=== PATIENT | female | born 1950 | race Caucasian/White ===

== ENCOUNTER 2018-02-25 15:36 | Inpatient (IN) ==
--- NOTE | 2018-02-25 16:00 | Emergency Department Note ---
Disposition Clinical Impression: Symptomatic bradycardia Disposition: Admitted As Inpatient Condition: Good Arrhythmia/Palpitations HPI - General Chief Complaint: ED Arrhythmia/Palpitations Stated Complaint: bradycardia Time Seen by Provider: 02/25/18 15:49 Source: patient Mode of arrival: private vehicle Limitations: no limitations Nursing Notes Reviewed: Yes Vital Signs Reviewed: Yes - History of Present Illness HPI Narrative: 67-year-old female history of hypertension, prior coronary artery bypass graft 4 years ago, baseline recent bradycardia on 25 mg metoprolol daily presents to the ER due to bradycardia. The patient reports this is been an ongoing thing and that she is following with cardiology for potential pacemaker placement. She states that this morning she woke up feeling lightheaded broke out in a sweat felt short of breath. She checked her heart rate it was 38. She states that that his lower that she usually runs. States he is usually more around 50 beats a minute. She reports that she was working today and still continued to feel lightheaded and much more short of breath even with minimal exertion which prompted her to come here. She denies any chest pain. No history of cardiovascular disease with the exception of her bypass, no history of DVT or PE. No other complaints. Onset (ago): day(s) Duration: intermittent Arrhythmia History: other (Bradycardia) Associated symptoms: Reports: shortness of breath, near-syncope, diaphoresis. Denies: syncope - Related Data Home Medications Medication Instructions Recorded Confirmed Aspirin Enteric Coated [Aspirin EC] 81 mg PO DAILY 02/25/18 02/25/18 Bupropion HCl [Wellbutrin Xl] 300 mg PO DAILY 02/25/18 02/25/18 Ezetimibe [Ezetimibe] 10 mg PO DAILY 02/25/18 02/25/18 FLUoxetine HCl [PROzac] 20 mg PO DAILY 02/25/18 02/25/18 Losartan Potassium [Cozaar] 50 mg PO DAILY 02/25/18 02/25/18 Metoprolol Succinate [Toprol Xl] 25 mg PO DAILY 02/25/18 02/25/18 Rosuvastatin Calcium [Rosuvastatin 40 mg PO HS 02/25/18 02/25/18 Calcium] Valsartan [Valsartan] 80 mg PO DAILY 02/25/18 02/25/18 amLODIPine [Norvasc] 5 mg PO DAILY 02/25/18 02/25/18 Allergies Allergy/AdvReac Type Severity Reaction Status Date / Time No Known Allergies Allergy Verified 02/25/18 16:08 All systems ED: reviewed and negative except as stated. Cardiovascular: Denies: chest pain, palpitations Respiratory: Reports: dyspnea Gastrointestinal: Denies: abdominal pain, nausea, vomiting Neurological: Reports: other (Dizziness) Past Medical History - Past Medical History Attestation: Yes The following information was validated with the patient. Source: patient Medical history: Reports: arthritis, coronary artery disease, myocardial infarction Surgical history: Reports: coronary bypass (CABG), other Psychiatric history: Reports: no psych history - Social History Smoking Status: Former smoker Alcohol use: Reports: rarely Drug use: Reports: none Physical Exam - General Limitations: no limitations General appearance: alert, in no apparent distress - Head Head exam: atraumatic, normocephalic, normal inspection - Eye Eye exam: Present: normal appearance - ENT ENT exam: normal exam - Neck Neck exam: Present: normal inspection - Chest Chest inspection: Present: normal inspection, symmetric chest wall rise - Respiratory Respiratory exam: Present: normal lung sounds bilaterally - Cardiovascular Cardiovascular exam: Present: normal rhythm, bradycardia, normal heart sounds - Abdominal Exam Abdominal exam: Present: soft, Non-Tender. Absent: tenderness, distention, rigidity - Extremities Exam Extremities exam: Present: normal inspection, full ROM - Expanded Upper Extremity Exam Shoulder exam: Present: normal inspection, full ROM Arm exam: Present: normal inspection, full ROM Elbow exam: Present: normal inspection, full ROM Forearm/Wrist exam: Present: normal inspection, full ROM Hand exam: Present: normal inspection, full ROM - Expanded Lower Extremity Exam Hip/Pelvis exam: Present: normal inspection, full ROM Upper leg exam: Present: normal inspection, full ROM Knee exam: Present: normal inspection, full ROM Lower leg exam: Present: normal inspection, full ROM Ankle exam: Present: normal inspection, full ROM Foot/toe exam: Present: normal inspection, full ROM - Neurological Exam Neurological exam: Present: alert, other (GCS 15. Nonfocal.) - Skin Skin exam: Present: warm, dry Course Course Narrative: Patient seen and examined. Vital signs reviewed. Hemodynamically stable at this point with normal mentation. Plan for EKG, chest x-ray, labs, discussed with cardiology with likely admission. - Reevaluation(s) Reevaluation #1: Discussed results of imaging labs with the patient. Agreeable with admission. - Consultations Consultation #1: I spoke with the on-call administrative support specialist Dr. Bahena. Discussed the patient's history EKG and labs. Agreeable with consultation with admission to the hospital service. Vital Signs Temperature 97.6 F 02/25/18 15:37 Pulse Rate 53 02/25/18 15:37 Respiratory Rate 18 02/25/18 15:37 Blood Pressure 162/75 02/25/18 15:37 O2 Sat by Pulse Oximetry 93 02/25/18 15:37 Temperature 98.7 F 02/25/18 18:32 Pulse Rate 51 02/25/18 18:32 Respiratory Rate 18 02/25/18 18:32 Blood Pressure 170/79 02/25/18 18:32 O2 Sat by Pulse Oximetry 98 02/25/18 20:46 Oxygen Delivery Oxygen Delivery Room Air Arrhythmia/Palpitations - MDM Narrative Medical decision making narrative: 67-year-old female with symptomatic bradycardia. Hemodynamically stable here. Cardiology consulted. Admitted to the hospital service in stable condition. - Lab Data Lab results reviewed: Yes I reviewed the patient's lab results. Result diagrams: 02/25/18 15:51 02/25/18 15:51 Lab Results 02/25/18 02/25/18 02/25/18 Range/Units 15:51 15:51 15:51 WBC 6.2 (4.3-11.1) K/mcL RBC 4.54 (3.82-4.97) M/mcL Hgb 13.2 (11.5-15.4) g/dL Hct 41.0 (35.3-44.9) % MCV 90.3 (83.0-100.0) fL MCH 29.1 (28.0-33.3) pg MCHC 32.2 (31.6-35.5) g/dL RDW 13.2 (11.5-14.5) % Plt Count 251 (140-400) K/mcL MPV 10.6 (9.4-12.4) fL Immature Gran % 0.3 (0-4) % Seg Neutrophils % 57.0 % Lymphocytes % 33.7 % Monocytes % 5.6 % Eosinophils % 2.6 % Basophils % 0.8 % Neutrophils # 3.5 (1.6-8.9) K/mcL Lymphocytes # 2.1 (0.6-4.6) K/mcL Monocytes # 0.4 (0.0-1.3) K/mcL Eosinophils # 0.2 (0.0-0.6) K/mcL Basophils # 0.1 (0.0-0.2) K/mcL PT 11.0 (9.4-12.1) Seconds INR 1.0 APTT 21.2 L (26.0-36.0) Seconds Sodium 137 (136-145) mEq/L Potassium 4.4 (3.5-5.1) mEq/L Chloride 106 (98-107) mEq/L Carbon Dioxide 26 (23-29) mEq/L BUN 20 (8-23) mg/dL Creatinine 0.90 (0.60-1.20) mg/dL Est GFR ( Amer) > 60 (> 60) Est GFR (Non-Af Amer) > 60 (> 60) BUN/Creatinine Ratio 22 (6-26) Glucose 86 (70-105) mg/dL Calculated Osmolality 286 (280-300) Calcium 11.0 H (8.6-10.3) mg/dL Magnesium 2.1 (1.6-2.6) mg/dL Troponin I < 0.03 (< 0.04) ng/mL TSH 1.917 (0.340-5.600) mcIU/mL - Radiology Data Radiology results reviewed: Yes I reviewed the patient's radiology results. Chest X-Ray 02/25/18 15:51 IMPRESSION: Mild bibasilar airspace disease, likely atelectasis. Pneumonia is not excluded. D/ / Mallory Bustillo Cha, MD / Mallory Bustillo Cha, MD Interpreting Provider: Mallory Bustillo Cha, MD - EKG Data EKG attestation: Yes I reviewed and interpreted this EKG. EKG results narrative: EKG demonstrates sinus bradycardia with a rate of 45 bpm. Normal axis. Normal intervals. Poor R wave progression. No gross ST elevations or depressions. No acute ischemic findings. S.B.A.R. - S.B.A.R. Situation: Demographics, MOA Background: Presenting Complaint, Relevant PMH, Meds, & Allergies Assessment: Vital Signs, Course and respsone to treatment, Exam Concerns, Patient/Family Expectation, Pertinant Lab Results Recommendation: Barrier(s) to disposition, Recommendation based on pending studies, treatments, or consults Mac Report Given to: Hospitalist Mac Repor Time: 17:32 Attestation Statement - Attestation Attestation: I examined this patient and my medical decision-making was reviewed with the Resident Physician. I agree with the documented findings, disposition and treatment plan as described except to the extent set forth below. Findings consistent with bradycardia. Symptoms are improving. I do suspect there is underlying medication side effects. She is on beta paulina. There is no evidence of cardiac block at this time. Proceed with admission for further management cardiac consultation for possible medication adjustment.
[2018-02-25 16:28] LABS: Basophils # 0.1 K/mcL (0.0-0.2); Basophils % 0.8 %; Eosinophils # 0.2 K/mcL (0.0-0.6); Eosinophils % 2.6 %; Hemoglobin 13.2 g/dL (11.5-15.4); Immature Granulocytes % 0.3 % (0-4); Lymphocytes # 2.1 K/mcL (0.6-4.6); Lymphocytes % 33.7 %; Mean Corpuscular HGB Conc 32.2 g/dL (31.6-35.5); Mean Corpuscular Hemoglobin 29.1 pg (28.0-33.3); Mean Corpuscular Volume 90.3 fL (83.0-100.0); Mean Platelet Volume 10.6 fL (9.4-12.4); Monocytes # 0.4 K/mcL (0.0-1.3); Monocytes % 5.6 %; Neutrophils # 3.5 K/mcL (1.6-8.9); Platelet Count 251 K/mcL (140-400); Red Blood Count 4.54 M/mcL (3.82-4.97); Red Cell Distribution Width 13.2 % (11.5-14.5)
[2018-02-25 16:32] LABS: Activated Partial Thrombo Time 21.2 Seconds (26.0-36.0)
[2018-02-25 16:45] LABS: BUN/Creatinine Ratio 22 (6-26); Blood Urea Nitrogen 20 mg/dL (8-23); Carbon Dioxide 26 mEq/L (23-29); Chloride 106 mEq/L (98-107); Glucose 86 mg/dL (70-105); Magnesium 2.1 mg/dL (1.6-2.6); Osmolality,Calculated 286 (280-300); Potassium 4.4 mEq/L (3.5-5.1); Sodium 137 mEq/L (136-145); eGFR For Non-African Americans > 60 (> 60)
[2018-02-25 16:48] LABS: Troponin I < 0.03 ng/mL (< 0.04)
[2018-02-25 17:01] LABS: Thyroid Stimulating Hormone 1.917 mcIU/mL (0.340-5.600)
[2018-02-25] MEDS ORDERED: Naloxone 0.4 MG/ML INJ IVP PRN (19:14)
--- NOTE | 2018-02-25 20:18 | Internal Med History&Physical ---
Date of Encounter: 02/25/18 Time of Encounter: 19:40 Internal Medicine - H&P: HPI Chief complaint: lightheadedness Admitted From: Home History of present illness: Ms. Manning is a 67 year old female history of hypertension and s/p CABG presented to the ER with 1 day history of lightheadedness. Did not fall nor had syncopal episodes. Associated with diaphoresis. Denies chest pain, shortness of breath, cough, sputum production, nausea/vomiting, or fever/chills. She is known to have heart rate in the 50s on bb but states that it was never low in the high 30s. Prior to presentation, she had discussion with her staffing analyst about her bradycardia but has not reached an agreement for pacemaker yet. In the ED, she was afebrile and had a heart rate of 42. BP was elevated and oxygen saturation was above 95% on room air. Initial labs showed normal CBC, BMP, and PT/INR. Calcium was mildly elevated at 11.0. Electrolytes within normal limits, troponin negative 1 and TSH was normal. EKG, which I do not have a copy to review, apparently showed sinus bradycardia with a rate of [address]-T elevations. Patient was admitted for further management. Past Med Surg Social Fam HX - Past Medical History Attestation: Yes The following information was validated with the patient. Medical history: arthritis, coronary artery disease, myocardial infarction Psychiatric history: no psych history - Past Surgical History Surgical History: coronary bypass (CABG), other Additional surgical history: RECTAL PROLAPSE SURGERY - Social History Smoking Status: Former smoker Alcohol use: rarely Drug use: none Internal Medicine - H&P: Meds Aspirin Enteric Coated [Aspirin EC] 81 mg PO DAILY 02/25/18 [History] Bupropion HCl [Wellbutrin Xl] 300 mg PO DAILY 02/25/18 [History] Ezetimibe [Ezetimibe] 10 mg PO DAILY 02/25/18 [History] FLUoxetine HCl [PROzac] 20 mg PO DAILY 02/25/18 [History] Losartan Potassium [Cozaar] 50 mg PO DAILY 02/25/18 [History] Metoprolol Succinate [Toprol Xl] 25 mg PO DAILY 02/25/18 [History] Rosuvastatin Calcium [Rosuvastatin Calcium] 40 mg PO HS 02/25/18 [History] Valsartan [Valsartan] 80 mg PO DAILY 02/25/18 [History] amLODIPine [Norvasc] 5 mg PO DAILY 02/25/18 [History] 3 Allergy/AdvReac Type Severity Reaction Status Date / Time No Known Allergies Allergy Verified 02/25/18 16:08 All Systems PM: A 10-system review of systems was performed and is negative for pertinent findings except as documented above in the HPI. - Constitutional Vitals: Temp Pulse Resp BP Pulse Ox 98.7 F 51 18 170/79 96 02/25/18 18:32 02/25/18 18:32 02/25/18 18:32 02/25/18 18:32 02/25/18 18:32 Exam: General: Alert and oriented HEENT:EOM, pupils equal, round, and reactive. Cardiovascular:Normal S1 & S2, Bradycardic Lungs:Normal breath sounds, no wheezes or crackles. Abdomen:Soft, non-tender, no rigidity. Extremities:No deformity, no edema or tenderness, no joint swelling. Neurological:Normal cognition and motor skills. Skin:Normal color, no rash, no lesions. Pulses:Carotid and radial pulses normal +2. Rest of the physical exam is non-contributory Internal Med - H&P Results - Labs CBC & Chem 7: 02/25/18 15:51 02/25/18 15:51 - Assessment and plan (1) Symptomatic bradycardia Current Visit: Yes Status: Acute Assessment and plan: Presented with lightheadedness and presyncopal episode with heart rate of 38 in the setting of concomitant bb use hold off bb Telemetry overnight Trend troponin to rule out ACS Monitor electrolytes Cardiology evaluation tomorrow for possible pacemaker insertion, will keep her NPO just in case (2) Hypertension Current Visit: Yes Status: Acute Assessment and plan: Resume home meds ?She is supposedly on both losartan and losartan at home, will hold off on one of the ARBs Qualifiers: Hypertension type: unspecified Qualified Code(s): I10 - Essential (primary ) hypertension (3) DVT prophylaxis Current Visit: Yes Status: Acute Assessment and plan: SQ heparin - Time Spent With Patient Total time spent is greater than 50% in coordination of care (as documented) at patient's floor/unit and/or counseling patient:
[2018-02-25] MEDS: *HR* Heparin 5,000 UNIT/ML VIAL SQ SCH (20:37)
[2018-02-26 04:19] LABS: Basophils % 0.8 %; Eosinophils # 0.2 K/mcL (0.0-0.6); Eosinophils % 3.6 %; Hematocrit 36.4 % (35.3-44.9); Hemoglobin 11.9 g/dL (11.5-15.4); Immature Granulocytes % 0.2 % (0-4); Lymphocytes # 2.2 K/mcL (0.6-4.6); Lymphocytes % 41.3 %; Mean Corpuscular HGB Conc 32.7 g/dL (31.6-35.5); Mean Corpuscular Hemoglobin 29.3 pg (28.0-33.3); Mean Corpuscular Volume 89.7 fL (83.0-100.0); Mean Platelet Volume 10.6 fL (9.4-12.4); Monocytes # 0.4 K/mcL (0.0-1.3); Monocytes % 7.4 %; Neutrophils # 2.5 K/mcL (1.6-8.9); Platelet Count 209 K/mcL (140-400); Red Blood Count 4.06 M/mcL (3.82-4.97); Red Cell Distribution Width 13.2 % (11.5-14.5); Segmented Neutrophils % 46.7 %
[2018-02-26 04:40] LABS: Alanine Aminotransferase 13 Units/L (7-52); Albumin 3.7 g/dL (3.5-5.7); Albumin/Globulin Ratio 1.6 (1.1-2.2); Alkaline Phosphatase 49 Units/L (34-104); Aspartate Amino Transferase 15 Units/L (13-39); BUN/Creatinine Ratio 25 (6-26); Bilirubin,Total 0.4 mg/dL (0.3-1.0); Blood Urea Nitrogen 17 mg/dL (8-23); Carbon Dioxide 24 mEq/L (23-29); Chloride 109 mEq/L (98-107); Globulin 2.3 g/dL (2.4-3.5); Glucose 95 mg/dL (70-105); Osmolality,Calculated 291 (280-300); Potassium 4.1 mEq/L (3.5-5.1); Sodium 140 mEq/L (136-145); eGFR For Non-African Americans > 60 (> 60)
[2018-02-26] MEDS: *HR* Heparin 5,000 UNIT/ML VIAL SQ SCH ×4 (05:29→23:17)
[2018-02-26] MEDS: amLODIPine 5 MG TABLET PO SCH (07:56)
[2018-02-26] MEDS: Aspirin Enteric Coated 81 MG Tablet PO SCH (07:56)
[2018-02-26] MEDS: (Ezetimibe [Ezetimibe] 10 MG) PO SCH (07:56)
[2018-02-26] MEDS: FLUoxetine 20 MG CAPSULE PO SCH (07:56)
[2018-02-26] MEDS: BuPROPion XL (24 HR) 150 MG TABLET PO SCH (07:56)
--- NOTE | 2018-02-26 09:07 | Internal Med Progress Note ---
<Jez Cordero - Last Filed: 02/26/18 15:18> Hospitalist Progress Note - Encounter Date of Encounter: 02/26/18 Time of Encounter: 08:30 - Subjective Interval History: Ms. Manning was sitting upright upon my arrival and watching TV. Upon questioning the patient is alert and oriented x 3 and does not appear to be in any acute distress. She states that she has not had anymore episodes of lightheadedness, however she also has not moved around very much since her admission. She also denies any chest pain, shortness of breath, abdominal pain, nausea or vomiting, or any limb swelling. - Exam Vitals: Temp Pulse Resp BP Pulse Ox 97.5 F L 46 15 124/76 97 02/26/18 07:08 02/26/18 07:08 02/26/18 07:08 02/26/18 07:08 02/26/18 07:08 Exam: General Appearance: Patient does not appears to be in distress Head exam: Atraumatic, normocephalic Eye exam: PERRL, conjuntiva pink, sclera anicteric Neck exam: Trachea midline Respiratory exam: No wheezing, rales, or rhonci Cardiology exam: RRR, +S1, +S2 Gastrointestinal exam: Normal bowel sounds, soft, no tenderness Extremities exam: warm without tenderness, no peripheral edema Neurological exam: CN II-XII intact, patient is alert and oriented x 3 Skin exam: Dry and intact - Assessment and Plan (1) Symptomatic bradycardia Current Visit: Yes Status: Acute Assessment and Plan: -Ms. Manning states that she has a history of bradycardia and that her heart rate usually runs in the 50's -Is seen regularly by a treasurer but has been agreeable for pacemaker placement in the past -Admitted yesterday because she was feeling lightheaded, checked her BP at home and her heart rate was running in the 30-40's -Upon admission in the ED her heart rate was 42 -Patient states that she has not had further episodes of lightheadedness since admission -Electrolytes are all within normal limits -Cardiology evaluated the patient with plans monitor telemetry, have the patient ambulate, check orthostatics, and perform an Echo -At this time Cardiology determines the patient to be clinically stable with no indication for pacer at this time. (2) Hypertension Current Visit: Yes Status: Acute Assessment and Plan: -Patient has a previous history of hypertension -Beta paulina is currently on hold -Currently receiving treatment with Amlodipine and Losartan -Latest blood pressure was 124/76 -Continue to monitor blood pressure Q4 hours (3) DVT prophylaxis Current Visit: Yes Status: Acute Assessment and Plan: -Currently receiving DVT prophylaxis with Heparin 5,000 units SQ -Not currently complaining of calf/leg pain -On physical examination not unilateral leg swelling - Time Spent with Patient Total time spent is greater than 50% in coordination of care (as documented) at patient's floor/unit and/or counseling patient: Internal Medicine: Result - Labs CBC & Chem 7: 02/26/18 03:31 02/26/18 03:31 Labs: Short CBC 02/26/18 Range/Units 03:31 WBC 5.3 (4.3-11.1) K/mcL Hgb 11.9 (11.5-15.4) g/dL Hct 36.4 (35.3-44.9) % Plt Count 209 (140-400) K/mcL Neutrophils # 2.5 (1.6-8.9) K/mcL BMP 02/26/18 03:31 Sodium 140 Potassium 4.1 Chloride 109 H Carbon Dioxide 24 BUN 17 Creatinine 0.69 Glucose 95 Calcium 10.0 Cardiac Enzymes 02/25/18 Range/Units 21:30 Troponin I < 0.03 (< 0.04) ng/mL Liver Function 02/26/18 Range/Units 03:31 Total Bilirubin 0.4 (0.3-1.0) mg/dL AST 15 (13-39) Units/L ALT 13 (7-52) Units/L Alkaline Phosphatase 49 (34-104) Units/L Albumin 3.7 (3.5-5.7) g/dL - ABG Interpretation ABG results: PT/INR, D-dimer PT 11.0 Seconds (9.4-12.1) 02/25/18 15:51 Consult Discharge Plan - Plan Instructions: Chronic Hypertension (DC), Bradycardia (DC), Bradycardia (GEN) Referrals: Joel Avila MD [Primary Care Provider] - 03/06/18 1:30 pm <Sachin Ruelas - Last Filed: 02/26/18 19:06> Hospitalist Progress Note - Encounter Date of Encounter: 02/26/18 - Exam Vitals: Temp Pulse Resp BP Pulse Ox 97.5 F L 51 15 149/68 96 02/26/18 16:00 02/26/18 16:00 02/26/18 16:00 02/26/18 16:00 02/26/18 16:00 - Assessment and Plan (1) Drug-induced bradycardia Current Visit: Yes Status: Acute (2) Symptomatic bradycardia Current Visit: Yes Status: Acute (3) Hypertension Current Visit: Yes Status: Acute (4) DVT prophylaxis Current Visit: Yes Status: Acute (5) CAD (coronary artery disease) Current Visit: Yes Status: Chronic - Time Spent with Patient Total time spent is greater than 50% in coordination of care (as documented) at patient's floor/unit and/or counseling patient: Internal Medicine: Result - Labs CBC & Chem 7: 02/26/18 03:31 02/26/18 03:31 - ABG Interpretation ABG results: PT/INR, D-dimer PT 11.0 Seconds (9.4-12.1) 02/25/18 15:51 - Attending Attestation The history, physical exam, and medical decision making was performed by the medical student either while I was physically present and actively involved or I personally re-performed the exam and medical decision making. I have verified the accuracy of the medical student's documentation with regards to the history, physical exam findings, and medical decision making on 02/26/18. Ms Manning is currently admitted for bradycardia. She remains moderate to high risk due to potential for worsening clinical status. Ms Manning is still feeling tired. No fever or chills. No cough. No CP. No GI issues. Metoprolol on hold. Exam alert Comfortable Mucus membranes dry Heart javon but regular Lungs diminished Abd soft No edema I/P 1. Bradycardia most likely related to beta paulina 2. Fatigue Further diagnoses and plan as above. <ConsueloOglalo A - Last Filed: 02/26/18 15:18> (2) Hypertension Qualifiers: Hypertension type: unspecified Qualified Code(s): I10 - Essential (primary) hypertension <Sachin Ruelas A - Last Filed: 02/26/18 19:06> (3) Hypertension Qualifiers: Hypertension type: essential hypertension Qualified Code(s): I10 - Essential (primary) hypertension (5) CAD (coronary artery disease) Qualifiers: Coronary Disease-Associated Artery/Lesion type: [place] artery [place] vs. transplanted heart: [place] heart Associated angina: without angina Qualified Code(s): I25.10 - Atherosclerotic heart disease of [place] coronary artery without angina pectoris
--- NOTE | 2018-02-26 10:28 | Cardiology Consult Note ---
Date of Encounter: 02/26/18 Time of Encounter: 10:25 Assessment and Plan (1) Symptomatic bradycardia Current Visit: Yes Status: Acute Per Cardiology: Recent Holter January 2018 showed average heart rate 53 with rare PVCs 0.7 per hour and frequent PACs 157 per hour with no arrhythmias. Telemetry review with average heart rate the past 24 hours 49 with no significant events. ECG shows sinus bradycardia at 44 with PAC. Takes Toprol-XL 25 mg by mouth daily at home for known CAD. Last dose yesterday morning. Currently on hold. We will monitor telemetry and have ambulate. Will check orthostatics. We will check echo. Last echo August 2014 with EF 55%, mild diastolic dysfunction, no significant valvular disease. Clinically stable with no indication for pacer at this time. TSH stable. Discussed and reviewed with Dr. Hernandez. (2) CAD (coronary artery disease) Current Visit: Yes Status: Chronic Per Cardiology: History of CABG by Dr. Larkin June 2014. Troponins negative 2. Chest pain free. Negative nuclear stress test September 2017. On aspirin, statin, ARB. BB currently on hold. Qualifiers: Coronary Disease-Associated Artery/Lesion type: [place] artery [place] vs. transplanted heart: [place] heart Associated angina: without angina Qualified Code(s): I25.10 - Atherosclerotic heart disease of [place] coronary artery without angina pectoris Discussion w patient/family: The assessment and plan as outlined above was discussed with the patient and/or family members who expressed understanding and agreement. All questions were answered. Thank you for involving us in the care of your patient. Please call with any questions. History of Present Illness Consult date: 02/26/18 Requesting physician: Eric Hobson Consult reason: Bradycardia Chief complaint: Dizziness History of present illness: Ms. Manning is a 67 year old female with relevant past medical history of CAD with CABG [address] Larikn, HTN, and history of nicotine abuse. Last seen by Dr. Katlyn Nguyen December 2017. Cardiology consult for bradycardia. Patient reports yesterday and his heart rate around 38 with some mild dizziness. She denies any syncope or falls. Reports later that day heart rate in the 40s with some mild dizziness as well. She does report intermittent dizziness daily with position changes. Again denies any recent syncopal events or falls. Reports very rare palpitations, occurs for a few seconds about once per week. She denies any active bleeding or blood loss. Denies any chest pain. Denies any dyspnea on exertion or shortness of breath. Reports overall baseline fatigue unchanged. She reports taking Toprol-XL 25 mg by mouth daily with last dose yesterday morning. Past Med Surg Social Fam HX - Past Medical History Attestation: Yes The following information was validated with the patient. Source: patient, old records reviewed, obtained from family Medical history: arthritis, coronary artery disease, myocardial infarction Psychiatric history: no psych history - Past Surgical History Surgical History: coronary bypass (CABG), other Additional surgical history: RECTAL PROLAPSE SURGERY - Social History Smoking Status: Former smoker Alcohol use: rarely Drug use: none Medications and Allergies Aspirin Enteric Coated [Aspirin EC] 81 mg PO DAILY 02/25/18 [History] Bupropion HCl [Wellbutrin Xl] 300 mg PO DAILY 02/25/18 [History] Ezetimibe [Ezetimibe] 10 mg PO DAILY 02/25/18 [History] FLUoxetine HCl [PROzac] 20 mg PO DAILY 02/25/18 [History] Losartan Potassium [Cozaar] 50 mg PO DAILY 02/25/18 [History] Metoprolol Succinate [Toprol Xl] 25 mg PO DAILY 02/25/18 [History] Rosuvastatin Calcium [Rosuvastatin Calcium] 40 mg PO HS 02/25/18 [History] Valsartan [Valsartan] 80 mg PO DAILY 02/25/18 [History] amLODIPine [Norvasc] 5 mg PO DAILY 02/25/18 [History] 3 Allergy/AdvReac Type Severity Reaction Status Date / Time No Known Allergies Allergy Verified 02/25/18 16:08 All Systems Review: The remainder of the systems were reviewed and are negative - Constitutional Constitutional: fatigue - Cardiovascular Cardiovascular: as per HPI, lightheadedness, palpitations Physical Examination Vital Signs, Last 4 Hours Temp Pulse Resp BP Pulse Ox 02/26/18 07:08 97.5 F L 46 15 124/76 97 General: Conversant, No Apparent Distress HEENT: Atraumatic, Normocephaly, Mucus Membranes Moist Neck: No JVD, Normal carotid pulses Cardiac: Reg Rate and Rhythm, Normal S1 and S2, No Murmur Lungs: Normal Breath Sounds, No Wheeze, Rales, Rhonchi Neuro: Alert and responsive, No focal deficits noted Abdomen: Soft, Non-Tender Skin: No rashes noted on visualized skin Musculoskeletal: No Chest Wall Tenderness Extremities: No Clubbing, No Cyanosis, No Edema, Normal Pulses Results 02/26/18 03:31 02/26/18 03:31 Lab Results Laboratory Tests 02/25/18 02/25/18 02/25/18 15:51 15:51 21:30 INR 1.0 Creatinine Est GFR (Non-Af Amer) Magnesium AST ALT Troponin I < 0.03 < 0.03 TSH 1.917 02/26/18 03:31 INR Creatinine 0.69 Est GFR (Non-Af Amer) > 60 Magnesium 2.0 AST 15 ALT 13 Troponin I TSH ITS Impressions Chest X-Ray 02/25/18 15:51 IMPRESSION: Mild bibasilar airspace disease, likely atelectasis. Pneumonia is not excluded. D/ / Mallory Bustillo Cha, MD / Mallory Bustillo Cha, MD Interpreting Provider: Mallory Bustillo Cha, MD Active Medications Amlodipine Besylate (Norvasc) 5 mg PO DAILY [facility] PRN Reason: Protocol Stop: 08/28/18 09:01 Last Admin: 02/26/18 07:56 Dose: 5 mg Aspirin (Aspirin Ec) 81 mg PO DAILY [facility] Stop: 08/28/18 09:01 Last Admin: 02/26/18 07:56 Dose: 81 mg Bupropion HCl (Wellbutrin Xl) 300 mg PO DAILY [facility] Stop: 08/28/18 09:01 Last Admin: 02/26/18 07:56 Dose: 300 mg Fluoxetine HCl (Prozac) 20 mg PO DAILY [facility] PRN Reason: Protocol Stop: 08/28/18 09:01 Last Admin: 02/26/18 07:56 Dose: 20 mg Heparin Sodium (Porcine) (Heparin) 5,000 unit SQ Q8HCO [facility] Stop: 08/27/18 22:01 Last Admin: 02/26/18 05:29 Dose: 5,000 unit Losartan Potassium (Cozaar) 50 mg PO DAILY [facility] Stop: 08/28/18 09:01 Last Admin: 02/26/18 07:56 Dose: 50 mg Naloxone HCl (Narcan) 0.4 mg IVP Q2MIN PRN PRN Reason: SEE COMMENTS Stop: 08/27/18 19:15 Pharmacy Profile Note (Patient Taking Own Medication) 0 each PO DAILY [facility] Stop: 08/28/18 09:01 Last Admin: 02/26/18 07:56 Dose: Not Given Rosuvastatin Calcium (Crestor) 40 mg PO HS [facility] Stop: 08/27/18 21:01 Last Admin: 02/25/18 20:37 Dose: 40 mg - Imaging and Cardiology Stress Test: report reviewed (Nuclear stress test September 2017 negative for ischemia or infarct) - EKG Interpretation EKG results cardiology: personally reviewed (SB 44, PAC), normal ECG, sinus rhythm, other (Telemetry reviewed with average heart rate as 24 hours 49) Consult Discharge Plan - Plan Instructions: Chronic Hypertension (DC), Bradycardia (DC), Bradycardia (GEN) Referrals: Joel Avila MD [Primary Care Provider] - 03/06/18 1:30 pm
--- NOTE | 2018-02-26 12:56 | Event Note ---
Date of Encounter: 02/26/18 Time of Encounter: 13:00 - Cardiology Event Note Orthos: Selected Entries 02/26/18 11:59 Pulse Rate [Orthostatic Lying Right Arm] 51 Pulse Rate [Orthostatic Sitting Right Arm] 53 Pulse Rate [Orthostatic Standing Right Arm] 52 Blood Pressure [Orthostatic Lying Right Arm] 136/74 Blood Pressure [Orthostatic Sitting Right Arm] 143/93 Blood Pressure [Orthostatic Standing Right Arm] 136/73
--- NOTE | 2018-02-26 16:27 | Electrocardiograph Report ---
[address] [place], [place] [address] Test Date: 2018-02-25 Pat Name: Kristel Manning Department: 104 Room: 2NE17 Gender: F Nip Wrapper: : 1950 Requested By: Enrrique Valero Order Number: [id number] Reading MD: Aissatou Bahena Measurements Intervals [place] Rate: 45 P: 44 CA: 171 QRS: -1 QRSD: 98 T: 41 QT: 453 QTc: 410 Interpretive Statements SINUS BRADYCARDIA Electronically Signed On 02-26-2018 16:26:22 EDT by Aissatou Bahena
--- NOTE | 2018-02-26 16:31 | Electrocardiograph Report ---
[address] [place] [address] Test Date: 2018-02-25 Pat Name: Kristel Manning Department: 111 Room: 2NE17 Gender: F Rn Medical Inpatient Services: : 1950 Requested By: Marilin Saucedo Order Number: [id number] Reading MD: Aissatou Bahena Measurements Intervals [place] Rate: 44 P: 30 NM: 181 QRS: 3 QRSD: 110 T: 21 QT: 474 QTc: 423 Interpretive Statements SINUS BRADYCARDIA WITH OCCASIONAL SUPRAVENTRICULAR PREMATURE COMPLEXES MINIMAL ST DEPRESSION Electronically Signed On 02-26-2018 16:29:42 EDT by Aissatou Bahena
[2018-02-26] MEDS ORDERED: Ibuprofen 600 MG TABLET PO PRN (21:52)
[2018-02-27] MEDS: BuPROPion XL (24 HR) 150 MG TABLET PO SCH (08:44)
[2018-02-27] MEDS: *HR* Heparin 5,000 UNIT/ML VIAL SQ SCH ×2 (08:44→14:45)
[2018-02-27] MEDS: amLODIPine 5 MG TABLET PO SCH (08:44)
[2018-02-27] MEDS: FLUoxetine 20 MG CAPSULE PO SCH (08:44)
[2018-02-27] MEDS: (Ezetimibe [Ezetimibe] 10 MG) PO SCH (08:45)
[2018-02-27] MEDS: Aspirin Enteric Coated 81 MG Tablet PO SCH (08:45)
[2018-02-27] MEDS ORDERED: amLODIPine 5 MG TABLET PO ONE (09:45)
--- NOTE | 2018-02-27 09:46 | Cardiology Progress Note ---
Date of Encounter: 02/27/18 Time of Encounter: 09:40 Assessment and Plan (1) Symptomatic bradycardia Current Visit: Yes Status: Acute Per Cardiology: Recent Holter January 2018 showed average heart rate 53 with rare PVCs 0.7 per hour and frequent PACs 157 per hour with no arrhythmias. Telemetry showed average heart rate the past 12 hours 51 with no significant events. Current heart rate stable in the 50s and patient clinically improved. Echo pending. Per discussion Dr. Hernandez, we will proceed with modified standard stress test to assess for chronotropic response. Suspect possible discharge later today off beta paulina. TSH stable. Discussed reviewed with primary service. (2) CAD (coronary artery disease) Current Visit: Yes Status: Chronic Per Cardiology: History of CABG by Dr. Larkin June 2014. Troponins negative 2. Chest pain free. Negative nuclear stress test September 2017. On aspirin, statin, ARB. BB currently on hold. Qualifiers: Coronary Disease-Associated Artery/Lesion type: [place] artery [place] vs. transplanted heart: [place] heart Associated angina: without angina Qualified Code(s): I25.10 - Atherosclerotic heart disease of [place] coronary artery without angina pectoris (3) Hypertension Current Visit: Yes Status: Chronic Per Cardiology: Now off beta paulina. Systolic blood pressures elevated. We will increase Norvasc to 10 mg by mouth daily and monitor. Qualifiers: Hypertension type: essential hypertension Qualified Code(s): I10 - Essential (primary) hypertension Discussion w patient/family: The assessment and plan as outlined above was discussed with the patient and/or family members who expressed understanding and agreement. All questions were answered. Thank you for involving us in the care of your patient. Please call with any questions. Subjective Principal diagnosis: Bradycardia, Fatigue Interval history: Patient reports improvement in overall symptoms. She reports "I feel much better ". An building hallway with no difficulty. Denies fatigue. Denies any dizziness or syncopal events. Anxious to go home. Objective Vital Signs, Last 4 Hours Temp Pulse Resp BP Pulse Ox 02/27/18 07:07 97.8 F 47 14 154/67 98 General: Conversant, No Apparent Distress HEENT: Atraumatic, Normocephaly, Mucus Membranes Moist Neck: No JVD, Normal carotid pulses Cardiac: Reg Rate and Rhythm, Normal S1 and S2, No Murmur Lungs: Normal Breath Sounds, No Wheeze, Rales, Rhonchi Neuro: Alert and responsive, No focal deficits noted Abdomen: Soft, Non-Tender Skin: No rashes noted on visualized skin Musculoskeletal: No Chest Wall Tenderness Extremities: No Clubbing, No Cyanosis, No Edema, Normal Pulses Results 02/26/18 03:31 02/26/18 03:31 - Imaging and Cardiology Stress Test: pending Echo: pending - EKG Interpretation EKG results cardiology: other (Telemetry reviewed past 12 hours average heart rate 51, slowest 39 during nocturnal hours, no significant events noted, currently sinus pericardia in the upper 50s on telemetry) Consult Discharge Plan - Plan Instructions: Chronic Hypertension (DC), Bradycardia (DC), Bradycardia (GEN) Referrals: Joel Avila MD [Primary Care Provider] - 03/06/18 1:30 pm
--- NOTE | 2018-02-27 09:55 | Internal Med Progress Note ---
Hospitalist Progress Note - Encounter Date of Encounter: 02/27/18 Time of Encounter: 09:30 - Subjective Interval History: Ms. Manning was sitting upright upon my arrival and watching TV. Upon questioning the patient is alert and oriented x 3, pleasant, and does not appear to be in any acute distress. She states that she has not had anymore episodes of lightheadedness, and that she feels good and has been moving around her room without any episodes. She also denies any chest pain, shortness of breath, abdominal pain, nausea or vomiting, or any limb swelling. She has also been urinating okay and had a bowel movement yesterday. - Exam Vitals: Temp Pulse Resp BP Pulse Ox 97.8 F 47 14 154/67 98 02/27/18 07:07 02/27/18 07:07 02/27/18 07:07 02/27/18 07:07 02/27/18 07:07 Exam: General Appearance: Patient does not appears to be in distress Head exam: Atraumatic, normocephalic Eye exam: PERRL, conjuntiva pink, sclera anicteric Neck exam: Trachea midline Respiratory exam: No wheezing, rales, or rhonci Cardiology exam: RRR, +S1, +S2 Gastrointestinal exam: Normal bowel sounds, soft, no tenderness Extremities exam: warm without tenderness, no peripheral edema Neurological exam: CN II-XII intact, patient is alert and oriented x 3 Skin exam: Dry and intact - Assessment and Plan (1) Symptomatic bradycardia Current Visit: Yes Status: Acute Assessment and Plan: -Ms. Manning states that she has a history of bradycardia and that her heart rate usually runs in the 50's -Is seen regularly by a perishable fruit inspector but has been agreeable for pacemaker placement in the past -Admitted yesterday because she was feeling lightheaded, checked her BP at home and her heart rate was running in the 30-40's -Upon admission in the ED her heart rate was 42 -Patient states that she has not had further episodes of lightheadedness since admission -Electrolytes are all within normal limits -Cardiology evaluated the patient and Telemetry showed an average heart rate of 51 with no significant events for the last 12 hours -Echo is pending with plans to proceed with a modified standard stress test to assess chronotropic response -At this time Cardiology determines the patient to be clinically stable with no indication for pacer at this time. (2) Hypertension Current Visit: Yes Status: Chronic Assessment and Plan: -Patient has a previous history of hypertension -Beta paulina is currently on hold -Currently receiving treatment with Amlodipine and Losartan -Latest blood pressure was 154/67 -Continue to monitor blood pressure Q4 hours (3) DVT prophylaxis Current Visit: Yes Status: Acute Assessment and Plan: -Currently receiving DVT prophylaxis with Heparin 5,000 units SQ -Not currently complaining of calf/leg pain -On physical examination not unilateral leg swelling - Time Spent with Patient Total time spent is greater than 50% in coordination of care (as documented) at patient's floor/unit and/or counseling patient: Internal Medicine: Result - Labs CBC & Chem 7: 02/26/18 03:31 02/26/18 03:31 - ABG Interpretation ABG results: PT/INR, D-dimer PT 11.0 Seconds (9.4-12.1) 02/25/18 15:51 Consult Discharge Plan - Plan Instructions: Chronic Hypertension (DC), Bradycardia (DC), Bradycardia (GEN) Referrals: Joel Avila MD [Primary Care Provider] - 03/06/18 1:30 pm (2) Hypertension Qualifiers: Hypertension type: essential hypertension Qualified Code(s): I10 - Essential (primary) hypertension
--- NOTE | 2018-02-27 13:02 | Event Note ---
Date of Encounter: 02/27/18 Time of Encounter: 13:00 - Cardiology Event Note Stress test results reviewed with Dr. Hernandez, cardiology will sign off, will plan Holter discharge and outpatient follow-up for evaluation for possible pacer insertion. Please keep patient off beta paulina.
--- NOTE | 2018-02-27 14:35 | Discharge Summary ---
<Jez Cordero Jem - Last Filed: 02/27/18 15:03> - NOTES TO OUTPATIENT PROVIDER Notes to Outpatient Provider: Presented to [facility] after feeling lightheaded, checked HR at home, was in 30-40s. Hx CAD, CABG 2013, HTN and bradycardia. Patient clinically improved without further episodes of lightheadedness or dizziness. Echo showed a LVED of 55%, indeterminate diastolic function, mild pulmonary hypertension, and mild mitral/tricuspid regurgitation. Received a stress test, but was indeterminate due to failure to achieve target heart rate, patient did not complain of chest pain during test and blood pressure was within normal limits. Cardiology has signed off on the patient with plans for a follow up as outpatient for possible pacer placement. Metoprolol on hold. Orders not resulted at time of discharge: Pending orders 02/27/18 13:02 ECG 48 holter monitor setup [ECG] Routine Date of Encounter: 02/27/18 Time of Encounter: 09:45 - Discharge Diagnosis (1) Symptomatic bradycardia Status: Acute Assessment and Plan: -Ms. Manning states that she has a history of bradycardia and that her heart rate usually runs in the 50's -Is seen regularly by a social insurance administrator but has been agreeable for pacemaker placement in the past -Admitted yesterday because she was feeling lightheaded, checked her BP at home and her heart rate was running in the 30-40's -Upon admission in the ED her heart rate was 42 -Patient states that she has not had further episodes of lightheadedness since admission -Electrolytes are all within normal limits -Cardiology evaluated the patient and Telemetry showed an average heart rate of 51 with no significant events for the last 12 hours -Echo showed a LVED of 55%, indeterminate diastolic function, mild pulmonary hypertension, and mild mitral/tricuspid regurgitation. -Received a stress test, but was indeterminate due to failure to achieve target heart rate, patient did not complain of chest pain during test and blood pressure was within normal limits -Cardiology has signed off on the patient with plans for a follow up as outpatient for possible pacer placement (2) Hypertension Status: Chronic Assessment and Plan: -Patient has a previous history of hypertension -Beta arias is currently on hold -Currently receiving treatment with Amlodipine and Losartan -Latest blood pressure was 140/67 Qualifiers: Hypertension type: essential hypertension Qualified Code(s): I10 - Essential (primary) hypertension Hospital course: Ms. Manning is a 67 year old female Ms. Manning is a 67 year old female with a past medical of hypertension and CABG , who presented to the ED with a 1 day history of lightheadedness. Patient denies falling or losing consciousness, but had been having diaphoresis. Regularly sees a Slp Teacher and has a known history bradycardia in the 50's on a Beta Arias. Prior to presentation the patient had a discussion with her Slp Teacher about possible pacemaker placement, however the patient was not agreeable at that time. Upon admission to the ED the patient was afebrile with a heart rate of 42. EKG showed sinus bradycardia, but without ischemic changes and Troponin levels were negative. Chest x-ray showed mild bibasilar airspace disease, likely atelectasis, however pneumonia could not be excluded. Cardiology evaluated the patient and Telemetry showed an average heart rate of 51 with no significant events for the last 12 hours. Echo showed a LVED of 55%, indeterminate diastolic function, mild pulmonary hypertension, and mild mitral/ tricuspid regurgitation. Also received a stress test, but was indeterminate due to failure to achieve target heart rate, patient did not complain of chest pain during test and blood pressure was within normal limits. Cardiology has signed off on the patient with recommendations to hold the Beta Arias, and plans for a follow up as outpatient for possible pacer placement. At the time of discharge the patient states that she has not had anymore episodes of lightheadedness, and that she feels good and has been moving around her room without any episodes. She also denies any chest pain, shortness of breath, abdominal pain, nausea or vomiting, or any limb swelling. For more information see Assessment/Plan - Time Spent with Patient Total time spent providing and/or coordinating discharge services: - Discharge Medications Prescriptions: amLODIPine [Norvasc] 10 mg PO DAILY #30 tablet Home Medications: Aspirin Enteric Coated [Aspirin EC] 81 mg PO DAILY 02/25/18 [History] Bupropion HCl [Wellbutrin Xl] 300 mg PO DAILY 02/25/18 [History] Ezetimibe 10 mg PO DAILY 02/25/18 [History] FLUoxetine HCl [Prozac] 20 mg PO DAILY 02/25/18 [History] Losartan Potassium [Cozaar] 50 mg PO DAILY 02/25/18 [History] Rosuvastatin Calcium 40 mg PO HS 02/25/18 [History] amLODIPine [Norvasc] 10 mg PO DAILY #30 tablet 02/27/18 [Rx] Allergies/Adverse Reactions: 3 Allergy/AdvReac Type Severity Reaction Status Date / Time No Known Allergies Allergy Verified 02/25/18 16:08 Date of admission: 02/26/18 15:44 Primary care physician: Joel Avila MD Anticipated date of discharge: 02/27/18 - Constitutional Vitals: Temp Pulse Resp BP Pulse Ox 97.8 F 53 15 140/67 95 02/27/18 10:44 02/27/18 10:44 02/27/18 10:44 02/27/18 10:44 02/27/18 10:44 - Head Head exam: Present: atraumatic, normocephalic - Eye Eye exam: Present: PERRL Pupils: Present: PERRL - Neck Neck exam general surgery: Present: trachea midline - Respiratory Respiratory exam: Present: CTAB. Absent: rales, rhonchi, wheezes - Cardiovascular Cardiovascular exam: Present: RRR, +S1, +S2. Absent: rubs - GI/Abdominal GI/Abdominal exam: Present: normal bowel sounds, soft, no peritoneal signs. Absent: distended, tenderness - Extremities Exam Extremities exam: Present: warm. Absent: calf tenderness, cyanotic, pedal edema - Neurological Exam Neurological exam: Present: CN II-XII intact, oriented X3, no focal deficits. Absent: pronater drift, facial droop, speech deficit - Skin Skin exam: Present: dry, intact - Patient Status Disposition: Home, Self-Care Condition: Good - Discharge Instructions Instructions: Chronic Hypertension (DC), Bradycardia (DC), Bradycardia (GEN) Follow Up With: Joel Avila MD [Primary Care Provider] - 03/06/18 1:30 pm - Diet and Activity Activity: resume usual activities as tolerated Diet: advance to your usual diet <Sachin Ruelas - Last Filed: 02/27/18 20:42> Orders not resulted at time of discharge: Pending orders 02/27/18 13:02 ECG 48 holter monitor setup [ECG] Routine Date of Encounter: 02/27/18 - Discharge Diagnosis (1) Drug-induced bradycardia Priority: Primary Status: Acute (2) Symptomatic bradycardia Priority: Primary Status: Acute (3) Hypertension Priority: Secondary Status: Chronic Qualifiers: Hypertension type: essential hypertension Qualified Code(s): I10 - Essential (primary) hypertension (4) CAD (coronary artery disease) Priority: Secondary Status: Chronic Qualifiers: Coronary Disease-Associated Artery/Lesion type: [place] artery [place] vs. transplanted heart: [place] heart Associated angina: without angina Qualified Code(s): I25.10 - Atherosclerotic heart disease of [place] coronary artery without angina pectoris Hospital course: Ms. Manning is a 67 year old female - Time Spent with Patient Total time spent providing and/or coordinating discharge services: 38min Date of admission: 02/26/18 15:44 Primary care physician: Joel Avila MD Discharging clinician: Sachin Ruelas - Constitutional Vitals: Temp Pulse Resp BP Pulse Ox 97.8 F 53 15 140/67 95 02/27/18 10:44 02/27/18 10:44 02/27/18 10:44 02/27/18 10:44 02/27/18 10:44 - Patient Status Overall status at discharge: patient is progressing back to baseline - Attending Attestation The history, physical exam, and medical decision making was performed by the medical student either while I was physically present and actively involved or I personally re-performed the exam and medical decision making. I have verified the accuracy of the medical student's documentation with regards to the history, physical exam findings, and medical decision making on 02/27/18. Ms Manning has been admitted for bradycardia presumed due to beta arias. Her heart rate has improved off med. She has no symptoms now and is ready for discharge home. Exam alert comfortable Mucus membranes dry Heart reg No wheeze abd soft No edema No rash No neuro finding. Plan D/C home today.
[2018-02-27 15:09] VITALS: BP 139/66
[2018-02-28] MEDS ORDERED: amLODIPine 5 MG TABLET PO SCH (09:00)
== END 2018-02-27 15:52 | disposition home or self-care (01) | DRG 310 ==
LOC: EMEROO 15:36 → 2NENU 15:36 → SUATTDRO 17:39 → 2NENU 18:15
PROVIDERS: ADMIT Internal Medicine; ATTEND Internal Medicine

== ENCOUNTER 2021-03-04 12:11 | Observation (INO) ==
[2021-03-04] MEDS ORDERED: Aspirin 81 MG TAB.CHEW PO ONE (12:25)
[2021-03-04 12:46] LABS: Hemoglobin 14.3 g/dL (11.5-15.4)
[2021-03-04 12:50] LABS: Basophils % 0.6 %; Eosinophils # 0.1 K/mcL (0.0-0.6); Eosinophils % 2.4 %; Hematocrit 43.9 % (35.3-44.9); Immature Granulocytes % 0.6 % (0-4); Immature Platelets 3.5 % (1.1-6.1); Lymphocytes # 1.7 K/mcL (0.6-4.6); Lymphocytes % 34.1 %; Mean Corpuscular HGB Conc 32.6 g/dL (31.6-35.5); Mean Corpuscular Hemoglobin 29.2 pg (28.0-33.3); Mean Corpuscular Volume 89.6 fL (83.0-100.0); Mean Platelet Volume 10.3 fL (9.4-12.4); Monocytes # 0.4 K/mcL (0.0-1.3); Monocytes % 7.3 %; Neutrophils # 2.8 K/mcL (1.6-8.9); Platelet Count 227 K/mcL (140-400); Red Cell Distribution Width 12.7 % (11.5-14.5)
[2021-03-04 13:09] LABS: BUN/Creatinine Ratio 18 (6-26); Blood Urea Nitrogen 16 mg/dL (8-23); Calcium 10.8 mg/dL (8.6-10.3); Carbon Dioxide 26 mEq/L (23-29); Chloride 107 mEq/L (98-107); Glucose 82 mg/dL (70-105); Osmolality,Calculated 286 (280-300); Potassium 4.1 mEq/L (3.5-5.1); Sodium 138 mEq/L (136-145); eGFR For African Americans > 60 (> 60); eGFR For Non-African Americans > 60 (> 60)
[2021-03-04 13:10] LABS: Troponin I < 0.03 ng/mL (< 0.04)
[2021-03-04] MEDS ORDERED: Ondansetron 4 MG/2 ML VIAL IVP PRN (13:59)
[2021-03-04] MEDS ORDERED: Naloxone 0.4 MG/ML INJ IVP PRN (13:59)
[2021-03-04] MEDS ORDERED: Nitroglycerin 0.4 MG TAB.SUBL SL PRN (14:01)
[2021-03-04] MEDS ORDERED: Perflutren Lipid Microsphere 1.3 ML in 0.9 % Sodium Chloride 8.7 ML IVP PRN (14:38)
[2021-03-04] MEDS: *HR* Heparin 5,000 UNIT/ML VIAL SQ SCH (18:08)
[2021-03-05 03:45] LABS: Basophils % 0.7 %; Eosinophils # 0.1 K/mcL (0.0-0.6); Eosinophils % 2.4 %; Hematocrit 40.4 % (35.3-44.9); Hemoglobin 12.8 g/dL (11.5-15.4); Lymphocytes % 34.7 %; Mean Corpuscular HGB Conc 31.7 g/dL (31.6-35.5); Mean Corpuscular Hemoglobin 28.9 pg (28.0-33.3); Mean Corpuscular Volume 91.2 fL (83.0-100.0); Mean Platelet Volume 10.5 fL (9.4-12.4); Monocytes # 0.4 K/mcL (0.0-1.3); Monocytes % 6.6 %; Neutrophils # 3.2 K/mcL (1.6-8.9); Platelet Count 232 K/mcL (140-400); Red Blood Count 4.43 M/mcL (3.82-4.97); Red Cell Distribution Width 12.8 % (11.5-14.5); Segmented Neutrophils % 55.6 %; White Blood Count 5.8 K/mcL (4.3-11.1)
[2021-03-05 03:58] LABS: Activated Partial Thrombo Time 27.6 Seconds (26.0-36.0)
[2021-03-05 04:04] LABS: BUN/Creatinine Ratio 22 (6-26); Blood Urea Nitrogen 19 mg/dL (8-23); Calcium 10.1 mg/dL (8.6-10.3); Carbon Dioxide 26 mEq/L (23-29); Chloride 107 mEq/L (98-107); Chol/HDL Ratio 2.1 (0-4.9); Cholesterol 120 mg/dL (< 200); Glucose 90 mg/dL (70-105); HDL Cholesterol 56 mg/dL (40-59); LDL Cholesterol,Calculated 48 mg/dL (< 100); Magnesium 1.9 mg/dL (1.6-2.6); Osmolality,Calculated 290 (280-300); Phosphorous 2.9 mg/dL (2.7-4.5); Potassium 4.2 mEq/L (3.5-5.1); Sodium 139 mEq/L (136-145); Triglycerides 82 mg/dL (< 150); eGFR For African Americans > 60 (> 60); eGFR For Non-African Americans > 60 (> 60)
[2021-03-05] MEDS: *HR* Heparin 5,000 UNIT/ML VIAL SQ SCH ×2 (06:07→17:29)
[2021-03-05] MEDS ORDERED: Regadenoson 0.4 MG/5 ML SYRINGE IVP ONE (06:27)
[2021-03-05] MEDS: (Ezetimibe 10 MG Tablet) PO SCH (07:01)
[2021-03-05] MEDS: Aspirin Enteric Coated 81 MG Tablet PO SCH (10:14)
[2021-03-05] MEDS: amLODIPine 5 MG TABLET PO SCH (10:14)
[2021-03-05] MEDS: BuPROPion XL (24 HR) 150 MG TABLET PO SCH (10:14)
[2021-03-05] MEDS: FLUoxetine 20 MG CAPSULE PO SCH (10:14)
[2021-03-05] MEDS: Cholecalciferol (D-3) 1,000 UNIT (25MCG) TABLET PO SCH (10:14)
[2021-03-05] MEDS ORDERED: Perflutren Lipid Microsphere 1.3 ML in 0.9 % Sodium Chloride 8.7 ML IVP PRN (12:06)
[2021-03-06] MEDS: *HR* Heparin 5,000 UNIT/ML VIAL SQ SCH (05:32)
[2021-03-06] MEDS: amLODIPine 5 MG TABLET PO SCH (08:34)
[2021-03-06] MEDS: BuPROPion XL (24 HR) 150 MG TABLET PO SCH (08:34)
[2021-03-06] MEDS: Cholecalciferol (D-3) 1,000 UNIT (25MCG) TABLET PO SCH (08:35)
[2021-03-06] MEDS: FLUoxetine 20 MG CAPSULE PO SCH (08:35)
[2021-03-06] MEDS: Aspirin Enteric Coated 81 MG Tablet PO SCH (08:35)
[2021-03-06] MEDS: (Ezetimibe 10 MG Tablet) PO SCH (08:37)
[2021-03-06 09:22] LABS: BUN/Creatinine Ratio 19 (6-26); Blood Urea Nitrogen 16 mg/dL (8-23); Calcium 10.8 mg/dL (8.6-10.3); Carbon Dioxide 25 mEq/L (23-29); Chloride 107 mEq/L (98-107); Glucose 94 mg/dL (70-105); Osmolality,Calculated 285 (280-300); Phosphorous 2.5 mg/dL (2.7-4.5); Potassium 4.3 mEq/L (3.5-5.1); Sodium 137 mEq/L (136-145); eGFR For African Americans > 60 (> 60); eGFR For Non-African Americans > 60 (> 60)
[2021-03-06 09:26] LABS: Basophils % 0.6 %; Eosinophils # 0.1 K/mcL (0.0-0.6); Eosinophils % 2.4 %; Hematocrit 42.1 % (35.3-44.9); Hemoglobin 13.9 g/dL (11.5-15.4); Immature Granulocytes % 0.2 % (0-4); Lymphocytes # 1.7 K/mcL (0.6-4.6); Lymphocytes % 33.3 %; Mean Corpuscular Hemoglobin 29.8 pg (28.0-33.3); Mean Corpuscular Volume 90.1 fL (83.0-100.0); Mean Platelet Volume 10.3 fL (9.4-12.4); Monocytes # 0.3 K/mcL (0.0-1.3); Monocytes % 5.4 %; Neutrophils # 2.9 K/mcL (1.6-8.9); Platelet Count 235 K/mcL (140-400); Red Blood Count 4.67 M/mcL (3.82-4.97); Red Cell Distribution Width 12.8 % (11.5-14.5); Segmented Neutrophils % 58.1 %
[2021-03-06 17:33] VITALS: BP 132/82; PULSE 82; TEMP 98.1; O2SAT 96
== END 2021-03-06 10:54 | disposition home or self-care (01) ==
LOC: EMEROOARM 12:11 → 3BNU 12:11 → SUATTDRO 14:05 → 3BNU 15:05
PROVIDERS: ADMIT Internal Medicine; ATTEND Internal Medicine